=== PATIENT | male | born 1965 | race Caucasian/White ===

== ENCOUNTER → 2017-10-29 08:30 | Outpatient (CLI) | payer OTHER, SELFPAY ==
--- NOTE | 2017-10-29 08:33 | DI.US.S_ITS ---
PROCEDURE: US SOFT TISSUE HEAD AND NECK INDICATIONS: lump on neck, pilar cyst, eval and treat TECHNIQUE: Real-time scanning was performed of the neck region of interest, with image documentation. COMPARISON: None. FINDINGS: Solid, avascular soft tissue mass present corresponding to the palpable abnormality measuring 2.2 x 1.1 x 3.2 cm. IMPRESSION: Hypoechoic, avascular soft tissue mass corresponding to the palpable abnormality. Findings are nonspecific and differential would include both benign and malignant etiologies. If indicated soft tissue MRI could be performed. Dictated by: Piotr CONWAY Interpreted: Mercedes Waters MD on 10/29/2017 at 10:40 Approved by: Mercedes Waters M.D. on 10/29/2017 at 15:08
== END ==
PROVIDERS: PCP Physician Assistant; Visit Provider Physician Assistant
DX: R22.1 Localized swelling, mass and lump, neck (principal)
CPT/HCPCS: 76536